=== PATIENT | male | born 1960 | race Two or more races ===

== ENCOUNTER 2023-09-16 16:52 | Emergency (ER) | payer OTHER ==
[~2023-09-16] VITALS: Ht 177.8 cm; Wt 54.5 kg
[2023-09-16 17:54] VITALS: BP 141/78; PULSE 107; RESP 20; TEMP 100; O2SAT 94
[2023-09-16] MEDS: METOCLOPRAMIDE HCL 5MG/ml INJ 2ml VIAL IM ONE (20:18)
[2023-09-16] MEDS: ONDANSETRON HCL 4 MG/2 ML VIAL IM ONE (20:18)
[2023-09-16] MEDS: SODIUM CHLORIDE 0.9% 1,000 ML IV ONE (20:19)
[2023-09-16 21:07] LABS: Basophils # (auto) 0.1 10 ^3/uL (0-0.2); Basophils % (auto) 1.2 % (0.0-2.0); Eosinophils # (auto) 0 10 ^3/uL (0-0.8); Eosinophils % (auto) 0.1 % (0.0-7.0); Hematocrit 34.6 % (41.0-53.0); Hemoglobin 11.5 g/dL (13.5-17.5); Lymphocytes # (auto) 1.4 10 ^3/uL (0.4-5.4); Lymphocytes % (auto) 28.4 % (10.0-50.0); Mean Corpuscular Hemoglobin 28.3 pg (28.0-32.0); Mean Corpuscular Hgb Conc. 33.2 g/dL (32.0-36.0); Mean Corpuscular Volume 85.2 fL (80.0-100.0); Monocytes # (auto) 0.8 10 ^3/uL (0-1.3); Monocytes % (auto) 17.5 % (0.0-12.0); Neutrophils # (auto) 2.5 10 ^3/uL (1.6-8.6); Neutrophils % (auto) 52.8 % (37.0-80.0); Nucleated Red Blood Cells % 0.1 %; Red Blood Cells 4.06 10^6/uL (4.5-5.90); White Blood Cell 4.8 10^3/uL (4.4-10.8)
[2023-09-16 21:17] LABS: Red Cell Distribution Width 20.4 % (11.8-14.3)
[2023-09-16 21:27] LABS: Alanine Aminotransferase 23 U/L (7-40); Albumin 4.6 g/dL (3.2-4.8); Alkaline Phosphatase 82 U/L (46-116); Anion Gap 9 (5-15); Aspartate Aminotransferase 39 U/L (13-40); BUN/Creatinine Ratio 7.4 (10.0-20.0); Blood Urea Nitrogen 7 mg/dL (9-23); Calcium 9.3 mg/dL (8.7-10.4); Carbon Dioxide 27 mmol/L (20-30); Chloride 98 mmol/L (98-107); Glucose 95 mg/dL (74-106); Lipase 42 U/L (12-53); Potassium 3.7 mmol/L (3.5-5.1); Sodium 134 mmol/L (136-145)
[2023-09-16 21:28] LABS: Bilirubin, Total 0.4 mg/dL (0.2-1.0); Total Protein 8.1 g/dL (5.7-8.2)
[2023-09-16 21:42] LABS: Blood Alcohol 167.9 mg/dL (<10)
[2023-09-16 22:46] LABS: Urine Bacteria None Seen /hpf (None Seen); Urine WBC None Seen /hpf (0 - 3)
[2023-09-16 23:01] LABS: Urine Amorphous Crystal FEW /hpf (None Seen); Urine Blood Negative /uL (Negative); Urine Clarity Clear (Clear); Urine Color Light-Yellow (Yellow); Urine Mucus FEW (None Seen); Urine Protein, UAD Negative (Negative); Urine Specific Gravity 1.007 (1.001-1.035); Urine Urobilinogen Normal (Negative); Urine pH 5.5 (5.0-9.0)
[2023-09-16 23:07] LABS: Amphetamine Screen, Urine Neg (NEGATIVE)
[2023-09-16 23:08] LABS: Barbiturate Scree,Urine Neg (NEGATIVE); Benzodiazephine Screen, Urine Neg (NEGATIVE); Cannabinoid Screen, Urine Neg (NEGATIVE); Cocaine Screen, Urine Neg (NEGATIVE); Opiate Scree,Urine Neg (NEGATIVE); Phencyclidine Screen, Urine Neg (NEGATIVE)
== END 2023-09-17 00:26 | disposition home or self-care (01) ==
LOC: EDBD 16:52 → ER 17:01
DX: F10.129 Alcohol abuse with intoxication, unspecified (principal); Z79.899 Other long term (current) drug therapy; Y90.6 Blood alcohol level of 120-199 mg/100 ml
CPT/HCPCS: 36415; 80053; 80307; 80320; 81001; 83690; 84484; 85025; 96360; 96372; 99284; J2405; J2765; J7030

== ENCOUNTER 2023-09-17 16:05 | Emergency (ER) | payer OTHER ==
[~2023-09-17] VITALS: Ht 162.6 cm; Wt 84.0 kg
[2023-09-17 16:56] VITALS: BP 139/97; PULSE 101; RESP 16; TEMP 99; O2SAT 94
[2023-09-17 17:00] LABS: Basophils # (auto) 0.1 10 ^3/uL (0-0.2); Basophils % (auto) 1.3 % (0.0-2.0); Eosinophils # (auto) 0 10 ^3/uL (0-0.8); Hematocrit 36.5 % (41.0-53.0); Lymphocytes % (auto) 39.7 % (10.0-50.0); Mean Corpuscular Hemoglobin 28.3 pg (28.0-32.0); Mean Corpuscular Hgb Conc. 32.9 g/dL (32.0-36.0); Monocytes # (auto) 0.8 10 ^3/uL (0-1.3); Neutrophils # (auto) 2.2 10 ^3/uL (1.6-8.6); Nucleated Red Blood Cells % 0.1 %; Red Blood Cells 4.25 10^6/uL (4.5-5.90)
[2023-09-17 17:05] LABS: Red Cell Distribution Width 20.8 % (11.8-14.3)
[2023-09-17] MEDS: chlordiazePOXIDE HCL 25 MG CAP PO ONE (17:07)
[2023-09-17] MEDS: LORazepam 2MG/ML-1ML VIAL IV ONE (17:09)
[2023-09-17 17:17] LABS: Alanine Aminotransferase 31 U/L (7-40); Albumin 4.5 g/dL (3.2-4.8); Alkaline Phosphatase 82 U/L (46-116); Anion Gap 10 (5-15); Aspartate Aminotransferase 54 U/L (13-40); BUN/Creatinine Ratio 5.9 (10.0-20.0); Blood Alcohol 290.7 mg/dL (<10); Blood Urea Nitrogen 6 mg/dL (9-23); Calcium 9.4 mg/dL (8.7-10.4); Carbon Dioxide 28 mmol/L (20-30); Chloride 102 mmol/L (98-107); Glucose 92 mg/dL (74-106); Potassium 3.6 mmol/L (3.5-5.1); Sodium 140 mmol/L (136-145)
[2023-09-17 17:18] LABS: Bilirubin, Total 0.2 mg/dL (0.2-1.0); Total Protein 7.5 g/dL (5.7-8.2)
[2023-09-17] MEDS: FOLIC ACID 1 MG, MAGNESIUM SULF SDV 50% 8 MEQ, MULTIPLE VITAMIN 10 ML, THIAMINE INJ 100... INJ ONE (17:51)
[2023-09-17] MEDS ORDERED: HYDROcodone-ACET 5/325MG TAB PO PRN (20:45)
[2023-09-17] MEDS ORDERED: LORazepam 2MG/ML-1ML VIAL IV PRN (20:45)
[2023-09-17] MEDS ORDERED: DOCUSATE SOD 100 MG CAP PO PRN (20:45)
[2023-09-17] MEDS ORDERED: ACETAMINOPHEN 325 MG TAB PO PRN (20:45)
[2023-09-17] MEDS ORDERED: hydrALAZINE HCL 20 MG/ML VL IV PRN (20:45)
[2023-09-17] MEDS ORDERED: ONDANSETRON HCL 4 MG/2 ML VIAL IV PRN (20:45)
[2023-09-18] MEDS ORDERED: FOLIC ACID 1 MG in D5W 5% 50 ML INJ SCH (10:00)
[2023-09-18] MEDS ORDERED: THIAMINE 100mg/ml INJ (200mg/2ml VIAL) IV SCH (10:00)
== END 2023-09-17 21:18 | disposition left against medical advice (07) ==
LOC: EDBD 16:05 → ER 16:05 → EDUNIT# 16:05 → ER 21:18
DX: F10.239 Alcohol dependence with withdrawal, unspecified (principal); R56.9 Unspecified convulsions; Y90.8 Blood alcohol level of 240 mg/100 ml or more
CPT/HCPCS: 36415; 80053; 80320; 83735; 84484; 85025; 96365; 96366; 96375; 99284; J2060; J3411; J3475; J7030

== ENCOUNTER 2023-09-18 17:06 | Emergency (ER) | payer OTHER | END 2023-09-18 18:18 | disposition left against medical advice (07) | LOC: ER 17:06 | DX: F19.239 Other psychoactive substance dependence with withdrawal, unspecified (principal); Z53.21 Procedure and treatment not carried out due to patient leaving prior to being seen by health care provider ==

== ENCOUNTER → 2023-09-19 18:29 | Emergency (ER) | payer OTHER | END | disposition left against medical advice (07) | LOC: ER 18:29 | DX: F10.10 Alcohol abuse, uncomplicated (principal); Z53.21 Procedure and treatment not carried out due to patient leaving prior to being seen by health care provider ==